=== PATIENT | female | born 1965 | race Caucasian/White ===

== ENCOUNTER → 2018-07-02 | Outpatient (CLI) | payer MEDICARE, OTHER, MEDICAID ==
[~2018-07-02] MED LIST: CIPRO500 MG PO; DIAZEPAM 2MG TAB2 MG PO; FLAGYL500 MG PO; LASIX 20 MG TAB20 MG PO; LEVOTHYROXINE0.05 MG PO; MIRALAX17 GM PO; NASONEX17 GM NASAL; POTASSIUM20 PO; SENNA8.6 MG PO; SYNTHROID50 MCG PO; VALIUM2 MG PO; VALIUM5 MG
== END ==
LOC: M.RAD 10:41 → M.ULTRA 10:41 → M.RAD 11:15
DX: R92.8 Other abnormal and inconclusive findings on diagnostic imaging of breast (principal)

== ENCOUNTER → 2018-09-06 | Outpatient (CLI) | payer MEDICARE, OTHER, MEDICAID | LOC: M.ULTRA 14:22 | DX: N83.291 Other ovarian cyst, right side (principal); Z90.710 Acquired absence of both cervix and uterus; Z90.722 Acquired absence of ovaries, bilateral ==

== ENCOUNTER 2018-11-27 10:52 | Inpatient (IN) | payer MEDICARE, OTHER, MEDICAID ==
[~2018-11-27] VITALS: Ht 172.7 cm; Wt 87.1 kg
[2018-11-27 10:59] VITALS: BP 127/80
[2018-11-27] MEDS ORDERED: PROBIOTIC1 EAC1 PO (11:04)
[2018-11-27 11:12] LABS: URINE BILIRUBIN NEGATIVE (Negative); URINE BLOOD TRACE (Negative); URINE CLARITY CLEAR; URINE COLOR YELLOW; URINE GLUCOSE-RANDOM NEGATIVE (Negative); URINE KETONES NEGATIVE (Negative); URINE LEUKOCYTES-REFLEX NEGATIVE (Negative); URINE NITRITE-REFLEX NEGATIVE (Negative); URINE PROTEIN NEGATIVE (Negative); URINE SPECIFIC GRAVITY <= 1.005 (1.005-1.030); URINE UROBILINOGEN 0.2 E.U./dl (0.2-1.0)
[2018-11-27 11:31] LABS: HEMATOCRIT 40.1 % (37.0-47.0); HEMOGLOBIN 13.8 gm/dL (12.0-15.0); MCH 27.4 pg (26.0-34.0); MCHC 34.4 g/dL (28.0-37.0); MCV 79.8 fL (80.0-100.0); MPV 8.9 fl. (7.2-11.1); NUCLEATED RBCS 0 /100WBC; PLATELET COUNT* 157 thou/uL (150-400); RBC 5.02 mil/uL (4.20-5.00); RDW-CV 14.4 % (10.5-14.5); WBC 13.3 thou/uL (4.0-11.0)
[2018-11-27 11:57] LABS: ALKALINE PHOSPHATASE 84 U/L (46-116); ANION GAP 11 mmol/L (7-16); CALCIUM 9.3 mg/dL (8.5-10.1); CHLORIDE 102 mmol/L (98-107); CO2 29 mmol/L (21-32); CREATININE 0.7 mg/dL (0.6-1.3); GLUCOSE 130 mg/dL (70-99); LIPASE 56 U/L (73-393); POTASSIUM 3.5 mmol/L (3.5-5.1); SGOT 13 U/L (15-37); SGPT 23 U/L (30-65); SODIUM 142 mmol/L (136-145); TOTAL BILIRUBIN 0.6 mg/dL (<0.1-1.0); TOTAL PROTEIN 7.9 g/dL (6.4-8.2); TROPONIN-I LEVEL <0.06 ng/mL (<0.06)
[2018-11-27 12:09] LABS: BUN 9 mg/dL (7-18)
[2018-11-27 13:08] LABS: ABSOLUTE LYMPHOCYTES 2.4 thou/uL (0.8-5.3); ABSOLUTE MONOCYTES 0.5 thou/uL (0.0-1.2); ABSOLUTE NEUTROPHILS 10.4 thou/uL (1.6-8.1); ATYPICAL LYMPHS 1 %; PLATELET ESTIMATE ADEQUATE
[2018-11-27 13:36] VITALS: BP 113/64
[2018-11-27] MEDS ORDERED: ALLEGRA ALLERG180 MG PO (14:13)
[2018-11-27] MEDS ORDERED: TYLENOL EXTRA500 MG PO (14:14)
[2018-11-27 14:27] VITALS: BP 106/68
[2018-11-27 19:45] VITALS: BP 115/61
--- NOTE | 2018-11-27 20:03 | NUR ---
PATIENT ARRIVED TO UNIT AT APPROX 1335. ALERT AND ORIENTED X4. ASSESSMENT COMPLETED AND CHARTED. VSS ON ROOM AIR. NO COMPLAINTS OF PAIN, NAUSEA, OR SOA THROUGHOUT SHIFT. FLUIDS AND ANTIBIOTICS INFUSED ORDERED. PATIENT UP AD NORAH IN THE ROOM. CALL LIGHT IN REACH AND USES APPROPRIATELY. HOURLY ROUNDS COMPLETED. NURSING WILL CONTINUE TO MONITOR.
--- NOTE | 2018-11-28 03:43 | NUR ---
RECEIVED REPORT AND ASSUMED CARE AT 1900. VSS. PT DENIES COMPLAINTS OF PAIN. ASSESSMENT COMPLETED CHARTED. PT UP AD NORAH IN ROOM, ON RA. MEDICATION ADMIN PER EMAR. BED LOCKED IN LOWEST POSITION, CALL LIGHT WITHIN REACH.
[2018-11-28 07:56] VITALS: BP 104/62
--- NOTE | 2018-11-28 10:23 | NUR ---
ASSUMED CARE OF PT AROUND 0730 THIS AM. REFER TO ASSESSMENT. PT TO TRANSFER TO ROOM 113. REPORT GIVEN TO JOINT AND SPINE RN. NO OTHER CONCERNS AT THIS TIME. CLWR. WCTM.
--- NOTE | 2018-11-28 15:03 | EKG ---
[place] [address] ELECTROCARDIOGRAM REPORT Name: AYDEN WOO Room: [address] ADM IN .R.#: [id number] Admission: 11/27/18 Attend Phys: Deandre Zavala MD Discharge: Date of : 61 Report #: [id number] THIS REPORT FOR: //name// [facility] ED Test Date: 2018-11-27 Test Time: 11:10:13 Pat Name: AYDEN WOO Department: Room: [facility] Gender: F Javascript Developer: YESENIA : 1965 Requested By: Gomez Mix Order Number: [id number] MD: Loc Huang Measurements Intervals [place] Rate: 107 P: 49 AL: 182 QRS: 35 QRSD: 104 T: 33 QT: 352 QTc: 470 Interpretive Statements Sinus tachycardia Probable left atrial enlargement Low voltage, precordial leads Borderline repolarization abnormality Compared to ECG 10/15/2014 14:40:47 Sinus rhythm no longer present Electronically Signed On 11-28-2018 15:03:21 CDT by Loc Huang [email or web address] <ELECTRONICALLY SIGNED> By: Loc Huang MD, FAC 11/28/18 1503 1110 1110 Loc Huang MD, [facility] /EPI
[2018-11-28 16:35] VITALS: BP 106/68
--- NOTE | 2018-11-28 18:33 | NUR ---
ASSUMED CARE OF PATIENT AT APPROX 1020. ALERT AND ORIENTED X4. ASSESSMENT AND CHARTING REVIEWED. NO COMPLAINTS OF PAIN, NAUSEA, OR SOA. ANTIBIOTICS INFUSED ORDERED. 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 ANTIBIOTICS INFUSED ORDERED. UP AD NORAH. HOURLY ROUNDS COMPLETED. CALL LIGHT WITHIN REACH. NURSING WILL CONTINUE TO MONITOR.
[2018-11-28 20:00] VITALS: BP 108/67
[2018-11-29 04:00] VITALS: BP 89/49
[2018-11-29 04:12] LABS: ABSOLUTE EOSINOPHILS 0.2 thou/uL (0.0-0.7); ABSOLUTE LYMPHOCYTES 1.2 thou/uL (0.8-5.3); ABSOLUTE MONOCYTES 0.6 thou/uL (0.0-1.2); ABSOLUTE NEUTROPHILS 5.8 thou/uL (1.6-8.1); BASOPHILS 0.4 %; EOSINOPHILS 2.3 %; HEMATOCRIT 36.7 % (37.0-47.0); HEMOGLOBIN 12.3 gm/dL (12.0-15.0); LYMPHOCYTES 15.7 %; MCH 26.9 pg (26.0-34.0); MCHC 33.4 g/dL (28.0-37.0); MCV 80.4 fL (80.0-100.0); MONOCYTES 7.8 %; MPV 8.9 fl. (7.2-11.1); NUCLEATED RBCS 0 /100WBC; PLATELET COUNT* 156 thou/uL (150-400); POLYS 73.8 %; RBC 4.56 mil/uL (4.20-5.00); RDW-CV 14.5 % (10.5-14.5); WBC 7.8 thou/uL (4.0-11.0)
[2018-11-29 04:45] LABS: CALCIUM 8.8 mg/dL (8.5-10.1); CREATININE 0.7 mg/dL (0.6-1.3); POTASSIUM 3.8 mmol/L (3.5-5.1)
--- NOTE | 2018-11-29 05:34 | NUR ---
PT. SOMEWHAT PROGRESSING TOWARDS GOALS. HAS SLEPT OFF AND ON THROUGHOUT SHIFT. DENIED PAIN. VITAL SIGNS WITHIN NORMAL LIMITS. ROOM AIR. VALIUM GIVEN PER ORDER. ZOSYN INFUSING AT THIS TIME. HOURLY ROUNDING COMPLETED. CALL LIGHT IN REACH, WILL CONTINUE TO MONITOR.
[2018-11-29 08:00] VITALS: BP 117/57
[2018-11-29 16:41] VITALS: BP 108/76
--- NOTE | 2018-11-29 17:26 | NUR ---
PT REMAINED A&Ox4 THROUGHOUT SHIFT. VITALS STABLE. TOLERATED FULL LIQUID DIET. HAD BM TODAY. IV IN R AC TAKEN OUT DUE TO INFULTRAITION. NEW IV IN L FA PATENT, SL. UP AD NORAH. VALIUM GOT CORRECTED IN EMAR. NASONEX IN PT BIN. DAUGHTER IN ROOM. CALL LIGHT WITHIN REACH. WILL CONTINUE TO MONITOR.
[2018-11-29 19:10] VITALS: BP 115/72
[2018-11-30 04:29] LABS: ABSOLUTE EOSINOPHILS 0.2 thou/uL (0.0-0.7); ABSOLUTE LYMPHOCYTES 1.3 thou/uL (0.8-5.3); ABSOLUTE MONOCYTES 0.5 thou/uL (0.0-1.2); ABSOLUTE NEUTROPHILS 4.8 thou/uL (1.6-8.1); BASOPHILS 0.3 %; EOSINOPHILS 2.8 %; HEMATOCRIT 39.2 % (37.0-47.0); HEMOGLOBIN 12.8 gm/dL (12.0-15.0); LYMPHOCYTES 19.4 %; MCH 26.5 pg (26.0-34.0); MCHC 32.6 g/dL (28.0-37.0); MCV 81.2 fL (80.0-100.0); MONOCYTES 6.7 %; NUCLEATED RBCS 0 /100WBC; PLATELET COUNT* 186 thou/uL (150-400); POLYS 70.8 %; RBC 4.83 mil/uL (4.20-5.00); RDW-CV 13.9 % (10.5-14.5); WBC 6.8 thou/uL (4.0-11.0)
[2018-11-30 04:38] LABS: CALCIUM 9.1 mg/dL (8.5-10.1); CREATININE 0.7 mg/dL (0.6-1.3); POTASSIUM 3.9 mmol/L (3.5-5.1)
--- NOTE | 2018-11-30 05:20 | NUR ---
REPORT RECEIVED FROM OFF GOING SHIFT AND CARE ASSUMMED. AAOX4 RESP REG AND UNALBORED SKIN W/D NO ACUTE DISTRESS NOTED. PT DENIES PAIN AT THIS TIME. PT STATED SHE IS HOPING TO GO HOME IN AM. VSS AND NO ACUTE CHANGES DURING SHIFT. WILL CONTINUE TO MONITOR.
[2018-11-30 08:00] VITALS: BP 122/70
[2018-11-30 09:45] VITALS: BP 124/75
[2018-11-30 12:05] VITALS: BP 124/75
[2018-11-30] MEDS ORDERED: AUGMENTIN 875-1 EACH PO (12:13)
[2018-11-30] MEDS ORDERED: FLAGYL500 M1 PO (12:14)
[2018-11-30 14:48] VITALS: BP 124/75
--- NOTE | 2018-11-30 16:16 | NUR ---
PT ALERT AND ORIENTED X 4. DENIED NAUSEA AND PAIN IN AM. PHYSICIAN DISCUSSED WITH PATIENT MEDICAL INFORMATION @ 0994. PT NOTED TO HAVE INCREASED ANXIETY @ THIS TIME. PER PHYSICIAN ORDER, GIVEN VALIUM PRIOR TO ADMINISTRATION TIME. VS STABLE. ADVANCED PATIENT'S DIET FOR LUNCH TO SOFT DIET; FIBER RESTRICTED-TOLERATED WELL. PT GIVEN PO ANTIBIOTICS DUE TO IV BEING D/C'D. CONTINUES TO DENY NAUSEA. DISCHARGE INSTRUCTIONS GIVEN ALONG WITH PRESCRIPTIONS. HOME MEDICATIONS-SYNTHROID, NASAL SPRAY, AND VALIUM RETURNED TO PATIENT. PT LEFT UNIT @ 1545 BY WHEELCHAIR WITH PERSONAL BELONGINGS TO LEAVE WITH FAMILY BY PRIVATE CAR.
[2018-11-30 16:28] VITALS: BP 124/75
== END 2018-11-30 15:45 | disposition home or self-care (01) | DRG 872 ==
LOC: M.ERS 10:52 → M.TBA-ER 12:56 → M.ORTHSURG 12:56 → M.2W 13:45 → M.ORTHSURG 11-28 10:24
PROVIDERS: Family Medicine; Internal Medicine; Surgery
DX: A41.9 Sepsis, unspecified organism (principal); K57.32 Diverticulitis of large intestine without perforation or abscess without bleeding; H81.09 Meniere's disease, unspecified ear; E11.9 Type 2 diabetes mellitus without complications; Z90.721 Acquired absence of ovaries, unilateral; Z90.710 Acquired absence of both cervix and uterus; Z90.49 Acquired absence of other specified parts of digestive tract; Z88.6 Allergy status to analgesic agent; Z88.2 Allergy status to sulfonamides; Z79.899 Other long term (current) drug therapy

== ENCOUNTER → 2019-01-12 | Outpatient (CLI) | payer MEDICARE, OTHER, MEDICAID ==
[~2019-01-12] MED LIST changes: +ALLEGRA ALLERG180 MG PO; +AUGMENTIN 875-1 EACH PO; +FLAGYL500 M1 PO; +PROBIOTIC1 EAC1 PO; +TYLENOL EXTRA500 MG PO
== END ==
LOC: M.ULTRA 13:20
DX: N83.291 Other ovarian cyst, right side (principal); R59.9 Enlarged lymph nodes, unspecified; Z90.710 Acquired absence of both cervix and uterus; Z90.722 Acquired absence of ovaries, bilateral

== ENCOUNTER → 2019-08-18 | Outpatient (CLI) | payer MEDICARE, OTHER, MEDICAID | LOC: M.ULTRA 15:30 | DX: Z12.31 Encounter for screening mammogram for malignant neoplasm of breast (principal); N83.201 Unspecified ovarian cyst, right side; Z90.710 Acquired absence of both cervix and uterus ==

== ENCOUNTER → 2019-09-13 | Outpatient (CLI) | payer MEDICARE, OTHER, MEDICAID | LOC: M.ULTRA 14:30 | DX: N63.20 Unspecified lump in the left breast, unspecified quadrant (principal) ==

== ENCOUNTER → 2019-09-20 | Outpatient (CLI) | payer MEDICARE, OTHER, MEDICAID ==
[2019-09-20 10:09] LABS: CREATININE 0.7 mg/dL (0.6-1.3)
== END ==
LOC: M.CT 09-16 11:01
PROVIDERS: Obstetrics & Gynecology
DX: R22.32 Localized swelling, mass and lump, left upper limb (principal)

== ENCOUNTER → 2019-09-26 | Outpatient (CLI) | payer MEDICARE, MEDICAID ==
--- NOTE | 2019-09-28 15:07 | PATH ---
[address] [address] PATHOLOGY RPT PROCEDURE Name: AYDEN WOO Room: [facility]#: [id number] Admission: 09/26/19 Date of : 61 Discharge: Report #: [id number] Path Case #: [id number] [facility] Accession Number: [id number] . 01 Material submitted: . breast - LEFT AXILLARY-BREAST MASS. Modifiers: left, axillary tail . 01 Clinical history: . 3.89 x 1.51 x 0.88 cm palpable axillary/breast mass . 02 Diagnosis: Left axillary/breast mass, image-guided core biopsies: - Scant benign lymphoid tissue in association with abundant fat. See comment. (IZABELA:horticulture professor; 09/27/2019) . . . . . Special studies report received from [facility], [address] [place] [address], [address], [place], [address], on case [id number], labeled with their number [id number] dated 09/28/2019. . Flow Cytometry: Hematologic Neoplasia Assessment . Clinical History Palpable left axillary/ breast mass . Indication for Study Evaluation for hematolymphoid neoplasia . Specimen Tissue, Left Axillary . Viability 63% (7AAD exclusion) . Interpretation Tissue, Left Axillary: - No immunophenotypic evidence of B-cell non-Hodgkin lymphoma in a limited study (see comment). . Comments A very limited panel of markers was performed due to very low cell yield. B-cells are polytypic and T-cells are present (CD5+), however, could not be evaluated due to limited study. It is of note that non- hematolymphoid neoplasms, Hodgkin lymphoma, some T-cell lymphoma and some large cell lymphomas cannot be totally excluded based [place] [address] PATHOLOGY RPT PROCEDURE Name: AYDEN WOO Room: [facility]#: [id number] Admission: 09/26/19 Date of : 61 Discharge: Report #: [id number] Path Case #: [id number] analysis. Correlation with available clinical, laboratory, and morphologic data is recommended. . Populations Analyzed Lymphocytes: 32% B-cells: 4.2%, polytypic/polyclonal sIg light chain pattern T-cells: present (CD5+) CD45 Negative 68% No significant reactivity with the markers tested Events/Debris: (may represent non-hematolymphoid cells, degenerated cells, debris, unlysed red blood cells, etc.) . Morphologic Evaluation A slide was reviewed for quality reviewer purposes only. . Specimen Description Total Cell Yield: 0.02 X 10 and 6 . Reagent(s) Used CD5, CD10, CD19, CD20, CD45, kappa, lambda . at [facility]. Sadaf Davis MD Pathologist . . Intended Use Flow cytometry is optimally used to immunophenotypically characterize abnormal populations when they are detected. Negative flow cytometry results do not exclude lymphoma or neoplasia. Possible false negative flow cytometry results may occur in, but are not limited to, the following: neoplastic cells in Hodgkin lymphoma are not typically adequately represented by routine clinical flow cytometry; neoplastic cells may be lost or inadequately represented due to degeneration, sample processing, sampling artifact, or patchy involvement; plasma cells are typically underrepresented by flow cytometry; immature cells/blasts may be underrepresented due to hemodilution; myeloproliferative disorders and low grade myelodysplasia may not have immunophenotypic abnormalities or increased blasts. Correlation with all available clinical, laboratory, and morphologic data is always necessary to assess for the possibility of false negative flow cytometry results and to establish a diagnosis. Each marker in this analysis was used to assess for potential antigenic abnormalities or to evaluate detected abnormalities. . Any image or images that accompany this report are sales representative metals images only and should not be used to render a diagnosis. . Disclaimer(s) [place] [address] PATHOLOGY RPT PROCEDURE Name: AMNAAYDEN T [id number] Admission: 09/26/19 Date of : 61 Discharge: Report #: [id number] Path Case #: [id number] This test was developed and its performance characteristics determined by [employer], [employer]. It has not been cleared or approved by the Food and Drug Administration. . Performing Labs This test was performed at [facility]. at [address], [place], [address] - Baling Press Operator: Jhonatan Darden MD. [facility] is a business unit of [employer] [facility] a wholly-owned subsidiary of [employer]. . For inquiries, the physician may contact Lab: [phone] . A complete copy of the report is on file. . Professional services performed by [facility] at [address], [place] [address]. Technical services performed by [facility] at [address], [place] [address]. . (IZABELA:francine 09/28/2019) . . MBR 09/28/2019 1405 Local . 02 Comment: In multiple cores there is scant lymphoid tissue immediately adjacent to fibrous tissue suggesting a lymph node capsule and greater than 90% of the submitted specimen represents fat. This suggests a benign lymph node with massive fatty infiltration. Reviewed with Dr. Marco Antonio Rebolledo who agrees with the diagnosis. (IZABELA:otilia; 09/27/2019) . 02 Electronically signed: . Edwin Hunter MD, Pathologist NPI- [id number] . 01 Gross description: . Received in formalin labeled "Ayden Woo, left axillary/breast mass," are 4 distinct needle cores of viera soft tissue ranging from 1.4-1.5 cm in length and measuring approximately 0.1 cm in diameter. The specimen is submitted entirely in cassette A1-A3. . Also received in RPMI solution labeled "Ayden Woo, left axillary/breast mass," are multiple, possible needle cores of viera soft tissue. The specimen is forwarded for further studies. (TSD; 09/26/2019) [address] [address] PATHOLOGY RPT PROCEDURE Name: AYDEN WOO Room: [facility]#: [id number] Admission: 09/26/19 Date of : 61 Discharge: Report #: [id number] Path Case #: [id number] TOB/TOB 09/27/2019 1646 Local . 02 Pathologist provided ICD-10: N63.20 . 02 CPT . 329516 Specimen Comment: A courtesy copy of this report has been sent to [phone], [phone] Specimen Comment: 1524 Specimen Comment: Report sent to / DR WEAVER Performed at: 01 [facility] [address], [place], [place] [address] MD Taiwo Sales MD Phone: [phone] Performed at: 02 [facility] [address], [place], [place] [id number] MD Edwin Hunter MD Phone: [phone]
== END | disposition home or self-care (01) ==
LOC: M.MRI 09-12 12:23 → M.ULTRA 09-13 14:30
DX: N63.32 Unspecified lump in axillary tail of the left breast (principal)

== ENCOUNTER 2020-05-12 16:25 | Emergency (ER) | payer MEDICARE, MEDICAID ==
[~2020-05-12] VITALS: Ht 170.2 cm; Wt 83.9 kg
[2020-05-12 17:08] LABS: ABSOLUTE MONOCYTES 0.6 thou/uL (0.0-1.2); HEMATOCRIT 40.5 % (37.0-47.0); MCHC 34.2 g/dL (28.0-37.0); MONOCYTES 5.2 %; RBC 5.08 mil/uL (4.20-5.00); WBC 11.7 thou/uL (4.0-11.0)
[2020-05-12 17:10] LABS: ABSOLUTE EOSINOPHILS 0.2 thou/uL (0.0-0.7); ABSOLUTE NEUTROPHILS 9.8 thou/uL (1.6-8.1); BASOPHILS 0.4 %; EOSINOPHILS 1.3 %; HEMOGLOBIN 13.9 gm/dL (12.0-15.0); LYMPHOCYTES 8.8 %; MCH 27.3 pg (26.0-34.0); MCV 79.7 fL (80.0-100.0); MPV 8.5 fl. (7.2-11.1); NUCLEATED RBCS 0 /100WBC; PLATELET COUNT* 165 thou/uL (150-400); POLYS 84.3 %; RDW-CV 14.7 % (10.5-14.5)
[2020-05-12 17:15] LABS: CALCIUM 9.1 mg/dL (8.5-10.1); CREATININE 0.8 mg/dL (0.6-1.3); POTASSIUM 3.6 mmol/L (3.5-5.1)
[2020-05-12 17:19] LABS: ALBUMIN 4.1 g/dL (3.4-5.0); TOTAL BILIRUBIN 0.4 mg/dL (<0.1-1.0); TOTAL PROTEIN 8.1 g/dL (6.4-8.2)
[2020-05-12 18:11] LABS: URINE BILIRUBIN NEGATIVE (Negative); URINE BLOOD TRACE (Negative); URINE CLARITY CLEAR; URINE COLOR STRAW; URINE GLUCOSE-RANDOM NEGATIVE (Negative); URINE KETONES NEGATIVE (Negative); URINE LEUKOCYTES-REFLEX NEGATIVE (Negative); URINE NITRITE-REFLEX NEGATIVE (Negative); URINE PROTEIN NEGATIVE (Negative); URINE SPECIFIC GRAVITY <= 1.005 (1.005-1.030); URINE UROBILINOGEN 0.2 E.U./dl (0.2-1.0)
[2020-05-12] MEDS ORDERED: FLAGYL500 M1 PO (18:13)
[2020-05-12] MEDS ORDERED: CIPROFLOXACIN500 M1 PO (18:13)
[2020-05-12] MEDS ORDERED: NORCO 5-325 TA1 EAC2 PO (18:13)
[2020-05-12] MEDS ORDERED: PREDNISONE 20 M20 M1 PO (18:13)
[2020-05-12 18:29] VITALS: BP 144/79
--- NOTE | 2020-05-13 14:18 | EKG ---
[place] [address] ELECTROCARDIOGRAM REPORT Name: AYDEN WOO Room: [facility]#: [id number] Admission: 05/12/20 Attend Phys: Discharge: 05/12/20 Date of : 61 Date of Service: 05/12/20 1703 Report #: [id number] THIS REPORT FOR: //name// [facility] ED Test Date: 2020-05-12 Test Time: 17:03:49 Pat Name: AYDEN WOO Department: Room: Gender: F Food Service Representative: CCD : 1965 Requested By: Gomez Mix Order Number: [id number] MD: Hussein Perez Measurements Intervals [place] Rate: 94 P: 49 DE: 185 QRS: 29 QRSD: 120 T: 50 QT: 335 QTc: 419 Interpretive Statements Sinus rhythm Nonspecific intraventricular conduction delay Compared to ECG 11/27/2018 11:10:13 Intraventricular conduction delay now present Sinus tachycardia no longer present Electronically Signed On 05-13-2020 14:18:36 CDT by Hussein Perez [email or web address] <ELECTRONICALLY SIGNED> By: Bela Perez MD, [facility] 05/13/20 1418 1703 1703 Bela Perez MD, [facility] /EPI
== END 2020-05-12 18:30 | disposition home or self-care (01) ==
LOC: M.ERS 16:25
PROVIDERS: Family Medicine
DX: K52.9 Noninfective gastroenteritis and colitis, unspecified (principal); E11.9 Type 2 diabetes mellitus without complications; Z88.5 Allergy status to narcotic agent; Z88.2 Allergy status to sulfonamides; Z98.890 Other specified postprocedural states; Z90.49 Acquired absence of other specified parts of digestive tract; Z90.710 Acquired absence of both cervix and uterus; Z90.721 Acquired absence of ovaries, unilateral

== ENCOUNTER 2021-09-16 02:02 | Inpatient (IN) | payer MEDICARE, MEDICAID ==
[~2021-09-16] VITALS: Ht 172.7 cm; Wt 84.4 kg
[~2021-09-16 02:02] MED LIST changes: +CIPROFLOXACIN500 M1 PO; +NORCO 5-325 TA1 EAC2 PO; +PREDNISONE 20 M20 M1 PO
[2021-09-16 02:08] VITALS: BP 132/71
[2021-09-16 04:36] LABS: HEMATOCRIT 33.2 % (37.0-47.0); HEMOGLOBIN 11.2 gm/dL (12.0-15.0); MCH 26.7 pg (26.0-34.0); MCHC 33.6 g/dL (28.0-37.0); MCV 79.6 fL (80.0-100.0); MPV 8.7 fl. (7.2-11.1); NUCLEATED RBCS 0 /100WBC; PLATELET COUNT* 117 thou/uL (150-400); RBC 4.17 mil/uL (4.20-5.00); RDW-CV 13.9 % (10.5-14.5); WBC 4.1 thou/uL (4.0-11.0)
[2021-09-16 04:42] LABS: CALCIUM 8.4 mg/dL (8.5-10.1); CREATININE 0.6 mg/dL (0.6-1.3); POTASSIUM 3.8 mmol/L (3.5-5.1)
[2021-09-16 04:45] LABS: ALBUMIN 3.4 g/dL (3.4-5.0); MAGNESIUM 1.6 mg/dL (1.8-2.4); TOTAL BILIRUBIN 0.4 mg/dL (<0.1-1.0); TOTAL PROTEIN 6.8 g/dL (6.4-8.2)
[2021-09-16 05:29] LABS: URINE BILIRUBIN NEGATIVE (Negative); URINE BLOOD 1+ (Negative); URINE CLARITY CLEAR; URINE COLOR YELLOW; URINE GLUCOSE-RANDOM NEGATIVE (Negative); URINE KETONES TRACE (Negative); URINE LEUKOCYTES-REFLEX NEGATIVE (Negative); URINE NITRITE-REFLEX NEGATIVE (Negative); URINE PROTEIN NEGATIVE (Negative); URINE UROBILINOGEN 0.2 E.U./dl (0.2-1.0)
[2021-09-16 06:32] LABS: SQUAMOUS 4-10 Moderate /LPF (0-3)
[2021-09-16 06:33] LABS: CASTS None Seen /LPF (None Seen); CRYSTALS None Seen /LPF (None Seen); URINE RBC 3-10 Few /HPF (0-2); URINE WBC-REFLEX 0-5 Rare /HPF (0-5)
[2021-09-16 06:41] LABS: ABSOLUTE LYMPHOCYTES 0.5 thou/uL (0.8-5.3); ABSOLUTE MONOCYTES 0.2 thou/uL (0.0-1.2); ABSOLUTE NEUTROPHILS 3.4 thou/uL (1.6-8.1)
[2021-09-16 06:43] LABS: LARGE PLATELETS OCCASIONAL; PLATELET ESTIMATE DECREASED
[2021-09-16 08:56] VITALS: BP 132/71
[2021-09-16 12:00] VITALS: BP 109/56
[2021-09-16 12:27] LABS: CALCIUM 8.6 mg/dL (8.5-10.1); CREATININE 0.7 mg/dL (0.6-1.3); POTASSIUM 3.8 mmol/L (3.5-5.1)
[2021-09-16 16:00] VITALS: BP 115/68
--- NOTE | 2021-09-16 16:05 | NUR ---
CM ASSESSMENT ASSESSMENT COMPLETED WITH PT DAUGHTER (GARFIELD FIX [phone]). PT RESIDES IN HOME WITH SON. PT HAS NO HX OF DME USE, SNF, REHAB, OR HH. PT IND WITH ADLS. PT PLAN TO DC HOME UPON MED CLEARANCE. NO CM NEEDS NOTED.
[2021-09-16 20:30] VITALS: BP 131/64
[2021-09-17] VITALS: BP 101/50
[2021-09-17 04:00] VITALS: BP 95/47
[2021-09-17 04:47] LABS: ABSOLUTE LYMPHOCYTES 0.6 thou/uL (0.8-5.3); ABSOLUTE MONOCYTES 0.3 thou/uL (0.0-1.2); ABSOLUTE NEUTROPHILS 3.7 thou/uL (1.6-8.1); BASOPHILS 0.2 %; HEMATOCRIT 32.6 % (37.0-47.0); HEMOGLOBIN 11.2 gm/dL (12.0-15.0); LYMPHOCYTES 13.7 %; MCH 27.1 pg (26.0-34.0); MCHC 34.2 g/dL (28.0-37.0); MCV 79.1 fL (80.0-100.0); MONOCYTES 6.5 %; MPV 8.7 fl. (7.2-11.1); NUCLEATED RBCS 0 /100WBC; PLATELET COUNT* 141 thou/uL (150-400); POLYS 79.6 %; RBC 4.12 mil/uL (4.20-5.00); RDW-CV 13.7 % (10.5-14.5); WBC 4.7 thou/uL (4.0-11.0)
[2021-09-17 05:46] LABS: CALCIUM 8.5 mg/dL (8.5-10.1); CREATININE 0.7 mg/dL (0.6-1.3); POTASSIUM 3.4 mmol/L (3.5-5.1)
[2021-09-17 08:00] VITALS: BP 119/44
[2021-09-17 11:53] VITALS: BP 105/58
--- NOTE | 2021-09-17 14:37 | NUR ---
CM FOLLOWUP PT NOT MED CLEAR YET POST COVID DX. UPON MED CLEARANCE, PT TO DC HOME. NO CM NEEDS NOTED.
--- NOTE | 2021-09-17 15:34 | NUR ---
The patient is alert. Able to make needs known. Medicated for constipation. UP with assistance. Call light with. Diet advanced to Regular tolerated well. SR on the monitor. Denies SOB or CP.
[2021-09-17 16:01] VITALS: BP 105/58; BP 95/41
--- NOTE | 2021-09-17 17:05 | NUR ---
THE PATIENT DECLINED HER INSULIN AT DINNER AND HER MAG CITRATE. REQUESTED PRN DULCOLAX SUPP. AWARE.
[2021-09-17 20:00] VITALS: BP 101/55
[2021-09-18 01:09] VITALS: BP 106/46
[2021-09-18 04:40] VITALS: BP 109/57
[2021-09-18 04:49] LABS: ABSOLUTE LYMPHOCYTES 0.5 thou/uL (0.8-5.3); ABSOLUTE MONOCYTES 0.4 thou/uL (0.0-1.2); ABSOLUTE NEUTROPHILS 3.8 thou/uL (1.6-8.1); BASOPHILS 0.2 %; HEMATOCRIT 32.5 % (37.0-47.0); HEMOGLOBIN 10.9 gm/dL (12.0-15.0); LYMPHOCYTES 11.4 %; MCH 26.6 pg (26.0-34.0); MCHC 33.6 g/dL (28.0-37.0); MCV 79.3 fL (80.0-100.0); MONOCYTES 8.5 %; MPV 8.4 fl. (7.2-11.1); NUCLEATED RBCS 0 /100WBC; PLATELET COUNT* 150 thou/uL (150-400); POLYS 79.9 %; RDW-CV 13.7 % (10.5-14.5); WBC 4.7 thou/uL (4.0-11.0)
[2021-09-18 05:06] LABS: CALCIUM 8.5 mg/dL (8.5-10.1); CREATININE 0.6 mg/dL (0.6-1.3); POTASSIUM 3.3 mmol/L (3.5-5.1)
[2021-09-18 12:00] VITALS: BP 99/53
--- NOTE | 2021-09-18 18:18 | NUR ---
CM FOLLOWUP PT NOT MED CLEAR, BUT ANTICIPATED TO BE CLEAR FOR DC TOMORROW 09/19/21. PT WILL DC WITH NO CM NEEDS.
[2021-09-18 19:52] VITALS: BP 115/60
[2021-09-18 20:00] VITALS: BP 138/69
--- NOTE | 2021-09-18 20:09 | NUR ---
PT A&O X4, ANXIOUS AND NEEDY. PT STATED STAFF HAD "WITHHELD WATER AND MEDS FROM HER". EDUCATED PT THAT SHE HAD ALL OF HER MEDS THIS AM AND THAT IT WAS NOT TIME FOR HER TO HAVE ANY MORE MEDS. PT STATED "SOMEONE CAME IN AND TOLD ME TO DRINK FROM THE FAUCET." TRUST VAULT CLERK STATED SHE TOLD PT THAT THE ICE MACHINE WAS BROKEN AND COULDNT GIVE HER ANY WATER FROM IT BUT COULD GIVE HER SOME FROM THE FAUCET. PT WAS VERY UPSET BY THIS AND CALLED FAMILY TO COMPLAIN. THIS NURSE EDUCATED PT ON ATTEMPTING TO TAKE CARE OF ALL NEEDS AND WAS ABLE TO DO SO UNTIL AT APPROXIMATELY 1700, THIS NURSE WAS IN ROOM WHEN [employer] CLERK ARRIVED TO TAKE BS AND VS. THIS NURSE WAS HAVING DISCUSSION WITH PT WHILE [employer] CLERK TOOK VS AND PT ALLOWED [employer] VA[employer] CLERK WITH NO COMPLAINTS. LATER, PT CALLED AND REQUESTED TO SPEAK WITH CHARGE NURSE.
[2021-09-19] VITALS: BP 115/58
[2021-09-19 04:00] VITALS: BP 141/72
[2021-09-19 04:14] LABS: CALCIUM 8.6 mg/dL (8.5-10.1); CREATININE 0.7 mg/dL (0.6-1.3); POTASSIUM 3.6 mmol/L (3.5-5.1)
--- NOTE | 2021-09-19 05:43 | NUR ---
ASSUMED PT CARE AT APPROX 1930. PT IS AWAKE AND ORIENTED X4. PT IS NOT IN DISTRESS, NO DESATURATIONS NOTED ON ROOM AIR. PT IS TRACING SR ON THE REAL ESTATE PROCESSOR. NO ACUTE CHANGES THIS SHIFT. PT IS CLOSLEY MONITORED. FALL PRECAUTIONS IN PLACE. HOURLY ROUNDING DONE FOR PT SAFETY.
[2021-09-19 09:00] VITALS: BP 127/71
[2021-09-19] MEDS ORDERED: DEXAMETHASONE1 MG PO (10:57)
[2021-09-19] MEDS ORDERED: PROTONIX40 M2 PO (10:57)
[2021-09-19] MEDS ORDERED: DOXYCYCLINE 10100 MG PO (10:57)
[2021-09-19 11:53] VITALS: BP 127/71
[2021-09-19 13:34] VITALS: BP 116/49
--- NOTE | 2021-09-19 15:16 | NUR ---
CM FOLLOWUP PT MED CLEAR AND WILL DC HOME WITH NO CM NEEDS TODAY, 09/19/21.
== END 2021-09-19 15:00 | disposition home or self-care (01) | DRG 177 ==
LOC: M.ERS 02:02 → M.ORTHSURG 05:22 → M.TBA-ER 05:22 → M.ORTHSURG 08:57
PROVIDERS: Emergency Medicine; Internal Medicine; ADMIT Internal Medicine; ATTEND Internal Medicine
DX: U07.1 COVID-19 (principal); J12.82 Pneumonia due to coronavirus disease 2019; E87.1 Hypo-osmolality and hyponatremia; R10.13 Epigastric pain; R74.01 Elevation of levels of liver transaminase levels; E86.0 Dehydration; E11.9 Type 2 diabetes mellitus without complications; K59.00 Constipation, unspecified; Z88.5 Allergy status to narcotic agent; Z88.2 Allergy status to sulfonamides; Z79.899 Other long term (current) drug therapy; Z90.710 Acquired absence of both cervix and uterus; Z90.49 Acquired absence of other specified parts of digestive tract; Z90.721 Acquired absence of ovaries, unilateral; Z98.891 History of uterine scar from previous surgery